=== PATIENT | female | born 1960 ===

== ENCOUNTER 2021-12-31 06:27 | Day surgery (SDC) | payer OTHER ==
[~2021-12-31 06:27] MED LIST: CELLCEPT500 MG PO; COMBIGAN; FIASP; LASIX20 MG PO; LOVAZA; METROPROL PO; OCCUVITE; PRAVASTATIN SOD40 MG PO; SYNTHROID125 MCG PO; TUJEO; VITAMIN E PO; [UNRECOGNIZED DRUG - OTHER] PO
[2021-12-31] MEDS ORDERED: PERCOCET 5-3251 EACH PO (11:12)
== END 2021-12-31 16:05 | disposition home or self-care (01) ==
LOC: CIR.AMB 06:27
PROVIDERS: ATTEND Surgery
DX: D35.1 Benign neoplasm of parathyroid gland (principal); E21.0 Primary hyperparathyroidism; Z20.822 Contact with and (suspected) exposure to COVID-19; Z88.8 Allergy status to other drugs, medicaments and biological substances; I10 Essential (primary) hypertension; E66.9 Obesity, unspecified